=== PATIENT | male | born 2000 | race Two or more races ===

== ENCOUNTER 2025-02-17 23:35 | Emergency (ER) | payer OTHER ==
[~2025-02-17] VITALS: Ht 185.4 cm; Wt 68.0 kg
[2025-02-18] MEDS: IV NS 0.9% 1,000 ML BAG IV ONE (00:05)
[2025-02-18] MEDS ORDERED: ONDANSETRON HCL/PF 4 MG/2 ML VIAL ONE (00:06)
[2025-02-18] MEDS: ONDANSETRON HCL/PF - ER 4 MG/2 ML VIAL IV ONE (00:07)
[2025-02-18 00:08] LABS: PLATELET COUNT (AUTO) 187 K/uL (150-450); RED BLOOD CELL COUNT(AUTO) 5.88 MIL/uL (4.5-6.0); RED CELL DISTRIBUTION WIDTH 13.4 % (11.5-15.0); WHITE BLOOD COUNT (AUTO) 12.3 K/uL (4.3-11.0)
[2025-02-18 00:15] LABS: CALCIUM, SERUM 9.3 mg/dL (8.5-10.1); CREATININE 1.3 mg/dL (0.6-1.3); SODIUM SERUM 128.0 mmol/L (136-145); UREA NITROGEN, BLOOD 21.0 mg/dL (7-18)
[2025-02-18 00:21] LABS: ASPARTATE AMINOTRANSFERASE 16.0 U/L (15-37); TOTAL PROTEIN, SERUM 9.0 g/dL (6.4-8.2)
[2025-02-18] MEDS ORDERED: ONDA4TAB5 PO (00:59)
[2025-02-18 01:14] VITALS: BP 128/70; TEMP 98.7; O2SAT 98
== END 2025-02-18 01:14 | disposition home or self-care (01) ==
LOC: ER 23:39
DX: A05.9 Bacterial foodborne intoxication, unspecified (principal); R11.2 Nausea with vomiting, unspecified; Z88.0 Allergy status to penicillin
CPT/HCPCS: 99283; 85025; 83690; 36415; 80053; 96374; 96361; J2405 ×2; J7030